=== PATIENT | male | born 1955 | race Caucasian/White ===

== ENCOUNTER 2019-09-17 10:53 | Observation (INO) | payer OTHER ==
[2019-09-17 12:43] LABS: Absolute Lymphocytes (CBC) 1.7 K/uL (0.7-4.9); Basophils % 0.4 % (0-1.3); Lymphocytes % 23.8 % (15.3-44.8); MPV 9.5 fL (7.6-11.3); RBC Red Blood Cell Count 4.57 M/uL (4.33-5.43)
[2019-09-17 13:07] LABS: Albumin 3.7 g/dL (3.4-5.0); Bilirubin Total 0.4 mg/dL (0.2-1.0); Magnesium 2.2 mg/dL (1.8-2.4); Potassium 3.7 mmol/L (3.5-5.1); Protein, Total 7.6 g/dL (6.4-8.2)
[2019-09-17] MEDS: NA CHLORIDE 0.9% 1,000 ML IV SCH (13:31)
--- NOTE | 2019-09-17 14:01 | RAD REPORT ---
EXAM DESCRIPTION: RAD - Chest Pa And Lat (2 Views) - 09/17/2019 1:46 pm CLINICAL HISTORY: acute colitis, abdominal pain COMPARISON: Chest Pa And Lat (2 Views) dated 09/07/2019 TECHNIQUE: Frontal and lateral views of the chest were obtained. FINDINGS: The lungs are clear of focal finding. Interstitial pattern matches comparison. Heart size is normal and central vasculature is within normal limits. No pleural effusion or pneumothorax seen . No acute bony finding noted. No aortic abnormality. IMPRESSION: No acute cardiopulmonary process.
--- NOTE | 2019-09-17 14:06 | RAD REPORT ---
EXAM DESCRIPTION: CT - Abdomen Pelvis Wo Contrast - 09/17/2019 1:55 pm CLINICAL HISTORY: colitis, right-sided abdominal pain on physical exam COMPARISON: No comparisons TECHNIQUE: Axial [address] imaging of the abdomen and pelvis was performed without IV contrast. No IV contrast was given because of allergy, abnormal renal function, patient refusal or physician re quest. Oral contrast was given. All CT scans are performed using dose optimization technique as appropriate and may include automated exposure control or mA/KV adjustment according to patient size. FINDINGS: No suspicious findings in the lung bases. Small hiatal hernia is present. Diffuse fatty infiltration is present in the liver. No focal liver lesion. Spleen and pancreas show n o suspicious finding. Gallbladder and biliary tree are also without suspicious finding. Gallstones ca n be occult on CT imaging. No hydronephrosis or suspicious renal mass. No significant adrenal finding. Isodense renal masses an d pyelonephritis cannot be excluded in the absence of IV contrast. The urinary bladder is without sig nificant finding. Prostate gland and seminal vesicles show no suspicious findings. No gastric dilatation or wall thickening. No small bowel abnormality. The appendix is normal. Fatty i leocecal valve is present. There is no colon wall thickening or mass. Patient has minimal diverticulo sis. No diverticulitis based on CT imaging. Mild mucosal level inflammatory changes are potentially o ccult on CT imaging. No free air, free fluid or inflammatory stranding. No mass or bulky lymphadenopathy. Bilateral fat only inguinal hernias are present extending a few cm into each inguinal canal. Patient does have a fe w sub centimeter mesenteric lymph nodes present. No suspicious bony findings. IMPRESSION: Patient has mild sigmoid diverticulosis without diverticulitis findings. Mild mucosal le shannon inflammatory changes are potentially occult on CT imaging. No colon wall thickening or mass. Diffuse fatty infiltration of the liver. Bilateral fat only inguinal hernias are present extending a few cm into each inguinal canal. Full assessment is limited is the absence of IV contrast.
[2019-09-17 14:56] LABS: Urine Appearance TURBID; Urine Bilirubin NEGATIVE (NEG); Urine Blood NEGATIVE (NEG); Urine Color YELLOW; Urine Glucose NEGATIVE (NEG); Urine Protein NEGATIVE (NEG); Urine Specific Gravity 1.025 (1.005-1.030); Urine Urobilinogen 0.2 mg/dL (0.2-1.0)
[2019-09-17 15:09] VITALS: O2SAT 96; BMI 29.7
[2019-09-17] MEDS: CIPROFLOXACIN 400mg IV 400 MG/200 ML BAG IV SCH ×2 (15:27→21:00)
[2019-09-17 15:48] LABS: Urine Amorphous Sediment 3+ /HPF (NONE SEEN); Urine Bacteria >50 /HPF (NONE SEEN); Urine Culture Reflex Order REFLEXED; Urine Mucus 1+ /HPF (NONE SEEN); Urine RBC NONE SEEN /HPF (NONE SEEN)
[2019-09-17] MEDS: METRONIDAZOLE 500mg IVPB 500 MG/100 ML BAG IV SCH (16:24)
[2019-09-17] MEDS ORDERED: PNEUMOCOCCAL VACCINE 0.5 ML IMVAC ONE (17:00)
[2019-09-17] MEDS ORDERED: INFLUENZA VACCINE (for 3y+) 0.5 ML DOSE IMVAC ONE (17:00)
[2019-09-17] MEDS ORDERED: POTASSIUM CL SA 10 MEQ TAB PO ONE (20:00)
[2019-09-17] MEDS ORDERED: ALBUTEROL SULFATE IH PRN (22:23)
[2019-09-17] MEDS: VALSARTAN 160 MG PO SCH (23:00)
[2019-09-18] MEDS: NA CHLORIDE 0.9% 1,000 ML IV SCH ×2 (00:34→09:00)
[2019-09-18] MEDS ORDERED: NA CHLORIDE 0.9% 1,000 ML ONE (00:34)
[2019-09-18] MEDS: METRONIDAZOLE 500mg IVPB 500 MG/100 ML BAG IV SCH ×2 (00:34→09:38)
[2019-09-18] MEDS ORDERED: METRONIDAZOLE 500mg IVPB 500 MG/100 ML BAG IV ONE ×2 (00:34→09:17)
--- NOTE | 2019-09-18 03:28 | HP ---
Date of Admission: 09/17/2019 Chief Complaint: Nausea, vomiting, diarrhea. History Of Present Illness: This is a 64-year-old very pleasant male patient, came into office with complaints of having chills, fatigue, feeling weak, and dizzy when he gets up and moves on with poor appetite, abdominal pain, nausea, vomiting, and diarrhea. All these symptoms are going on for last c ouple of weeks or so, and he describes as having anywhere between 5-10 bowel movements a day. Last v omiting was a few days ago. No blood in stool. After I evaluated him, he was admitted to hospital f or further evaluation and management of this problem. Allergies: PENICILLIN, CAUSING SWELLING. Medications: List reviewed. Review of Systems: GI: As mentioned above. Constitutional: As mentioned above. All other systems reviewed and negative. Past Medical History: Significant for hypertension, hyperlipidemia, and coronary artery disease. Past Surgical History: Coronary artery angioplasty, foot surgery. Family History: Significant for father had colon cancer. Mother with COPD and breast cancer and hyp ertension and also colon cancer. Social History: Negative for smoking. Alcohol use occasionally. Physical Examination: Vital Signs: When patient came into office today, blood pressure 150/93, pulse 69, temperature 97.2, respiratory rate 16. Weight 227.2 pounds. Height 73 inches. General: Patient appears weaker than normal, not in any respiratory distress. HEENT: Head atraumatic, normocephalic. Conjunctivae nonerythematous. Sclerae white. Mouth, no thr ush or edema noted. Ears/Nose, no mass, lesion, discharge noted. Neck: Supple. No JVD, lymph nodes, bruit, thyromegaly noted. Lungs: Bilateral good equal air entry. Clear to auscultation. No rhonchi. No rales. Heart: Normal heart sounds, no murmur or gallop. Abdomen: Presence of tenderness in left upper quadrant and right lower quadrant. Extremities: No leg edema. No calf tenderness. Skin: No rash, ulcer, cellulitis. Lymphatics: No lymph node enlargement in neck, supraclavicular, infraclavicular region. Neuro: No focal neurological deficit. Chest: Unremarkable. External Genitalia: Deferred. Rectal: Deferred. Laboratory Data: The patient was admitted to the hospital. Blood work, urine test, and CAT scan was done. CAT scan shows diverticulosis without evidence of diverticulitis, diffuse fatty infiltration of liver, bilateral fat-containing inguinal hernia. White count 7, hemoglobin 14.4, platelets 198. Sodium 137, potassium 3.7, chloride 106, bicarb 25, BUN 19, creatinine 1.0, glucose 111. SGOT 62, SG PT 87, alkaline phosphatase 86, procalcitonin 0.14. Lactic acid 1.1. Urinalysis, 3+ sediment, other royal negative. Impression: 1.Acute gastroenteritis. 2.Hypertension. 3.Hyperlipidemia. 4.Coronary artery disease. Plan: Admit patient to hospital for further evaluation and management of this problem. Patient is a ppropriate for inpatient and is expected to spend 2 midnight in hospital. Patient has symptoms going on for almost 2 weeks. Last time he used antibiotic was azithromycin about 2-3 months ago. Home me dications will be continued per order. We will put him on clear liquid diet. We will start him on e mpiric IV antibiotics, Cipro and Flagyl. Stool C diff and stool culture were ordered. I will see him tomorrow for followup. Details and plan of treatment discussed with patient . NURIS/MODL Voice ID: [id number]
[2019-09-18] MEDS ORDERED: BUPROPION HCL 100 MG PO SCH (09:00)
[2019-09-18] MEDS ORDERED: HYDROCHLOROTHIAZIDE 25 MG PO SCH (09:00)
[2019-09-18] MEDS ORDERED: CLOPIDOGREL BISULFATE PO SCH (09:00)
[2019-09-18] MEDS ORDERED: CIPROFLOXACIN 400mg IV 400 MG/200 ML BAG IV ONE (09:19)
[2019-09-18] MEDS: CIPROFLOXACIN 400mg IV 400 MG/200 ML BAG IV SCH (09:38)
[2019-09-18] MEDS: VALSARTAN 160 MG PO SCH (09:39)
[2019-09-18 12:25] VITALS: BP 145/79; TEMP 97.6
[2019-09-18 13:56] LABS: C.diff Antigen/Toxin Ag neg : Tox neg (NEG : NEG)
--- NOTE | 2019-09-19 03:41 | DS ---
Date of Discharge: 09/18/2019 Physical Examination: HEENT: Examination unremarkable. Lungs: Clear to auscultation. Heart: Sounds normal. Abdomen: Soft. Bowel sounds normal. No guarding, rigidity, tenderness, or distention. Extremities: No leg edema. Laboratory Data: White count 7, hemoglobin 14.4, platelets 198. Sodium 137, potassium 3.7, chloride 106, bicarb 25, BUN 19, creatinine 1.10 glucose 111. SGOT 62, SGPT 87, procalcitonin 0.1. Hospital Course: A 64-year-old pleasant male patient came into office with abdominal pain, nausea, v omiting, and diarrhea. Please see dictated H and P for more information. After patient was evaluate d at the office, he was admitted to the hospital. CAT scan of abdomen and pelvis was negative for an y acute changes. This was CT scan without contrast. It did show diverticulosis without any evidence of diverticulitis. After he was admitted to the hospital, he was started on IV fluid, IV antibiotic s. He had multiple diarrhea stool. After he came into the hospital, and stool for C diff result is pending. Stool culture is pending, but patient reports that after 10 p.m. or so last night his diarr hea problem completely resolved without using any antidiarrheal medication and has not had any diarrh ea at all. Does not have any nausea, vomiting. No abdominal pain. This morning he feels a lot bett er and he feels comfortable going home. Medically, he is stable for discharge. I did give him diet instruction and for him to try to stay on liquid diet and soft diet today and then starting tomorrow advance diet as he tolerates. Patient was instructed to call office next week to schedule followup a ppointment. Discharge Medications: Continue all prior home medication. 1.Cipro 500 mg twice a day for 1 week. 2.Metronidazole 500 mg 3 times a day for 1 week. Final Diagnoses: 1.Acute gastroenteritis. 2.Hypertension. 3.Hyperlipidemia. 4.Coronary artery disease. NURIS/MODL Voice ID: [id number] Report ID: [id number]
== END 2019-09-18 12:17 | disposition home or self-care (01) ==
LOC: INTOOBSV 11:16 → 2ND 11:16
PROVIDERS: ADMIT Internal Medicine; ATTEND Internal Medicine
DX: K52.9 Noninfective gastroenteritis and colitis, unspecified (principal); I10 Essential (primary) hypertension; E78.5 Hyperlipidemia, unspecified; I25.10 Atherosclerotic heart disease of native coronary artery without angina pectoris; Z88.0 Allergy status to penicillin; Z23 Encounter for immunization
CPT/HCPCS: 87045; 85025; 81001; 87086; 36415; 83735; 84132; 87046; 83605; 87324; 80053; 84145; 87449; 74176; 71046; 90471 ×2; 90670; Q2035; J7030 ×2; J0744 ×2; G0379; G0378 ×3; 87088

== ENCOUNTER → 2023-09-07 | Emergency (ER) | payer OTHER, BC ==
--- NOTE | 2023-09-07 14:34 | RAD REPORT ---
EXAM DESCRIPTION: Liliane Doll And Sadi (2 Views)09/07/2023 1:53 pm CLINICAL HISTORY: Cough COMPARISON: 2020 FINDINGS: The lungs appear clear of acute infiltrate. The heart is normal size IMPRESSION: No acute abnormalities displayed
--- NOTE | 2023-09-07 14:40 | ER ---
Nurse's Notes [facility] Name: Dmitry Hall Age: 68 yrs Sex: Male : 1955 Arrival Date: 09/07/2023 Time: 12:58 Bed IW2 Private MD: Diagnosis: SARS-associated coronavirus as the cause of diseases classified elsewhere Presentation: 09/07 13:32 Chief complaint: Patient states: +COVID AT HOME. SENT BY PCP'S OFFICE. Coronavirus bp screen: Client reports previous positive COVID test result. Date of collection: September 07, 2023. Ebola Screen: No symptoms or risks identified at this time. Initial Sepsis Screen: Does the patient meet any 2 criteria? No. Patient's initial sepsis screen is negative. Does the patient have a suspected source of infection? No. Patient's initial sepsis screen is negative. Risk Assessment: Do you want to hurt yourself or someone else? Patient reports no desire to harm self or others. Note VAXX SATURDAY, S/S STARTED SATURDAY. Onset of symptoms is unknown. 13:32 Method Of Arrival: Ambulatory bp 13:32 Acuity: JHONATHAN 4 bp Triage Assessment: 13:33 General: Appears in no apparent distress. ill, Behavior is calm, cooperative, bp appropriate for age. Pain: Denies pain. Historical: - Allergies: 13:33 No Known Allergies; bp - Home Meds: 13:33 Wellbutrin Oral [Active]; Plavix 75 mg Oral tablet 1 tab daily [Active]; aspirin 81 mg bp Oral tablet,chewable 1 tab daily [Active]; valsartan oral [Active]; Lipitor Oral [Active]; - PMHx: 13:33 Hypertensive disorder; bp - Immunization history:: Adult Immunizations up to date. - Social history:: Smoking status: Patient denies any tobacco usage or history of. - Family history:: not pertinent. - Hospitalizations: : No recent hospitalization is reported. Screenin:53 [facility] ED Fall Risk Assessment (Adult) History of falling in the last 3 months, bp including since admission No falls in past 3 months (0 pts). Abuse screen: Denies threats or abuse. Denies injuries from another. Nutritional screening: No deficits noted. Tuberculosis screening: No symptoms or risk factors identified. Vital Signs: 13:32 BP 132 / 76; Pulse 81; Resp 16; Temp 97.6; Pulse Ox 98% ; bp ED Course: 13:05 Patient arrived in ED. ts1 13:09 Yao Combs MD is Attending Physician. rn 13:33 Triage completed. bp 13:35 Arm band placed on. bp 13:54 XRAY Chest Pa And Lat (2 Views) In Process Unspecified. EDMS 14:52 Kehinde Ureña, RN is Primary Nurse. bp 14:53 Patient has correct armband on for positive identification. bp 14:53 No provider procedures requiring assistance completed. Patient did not have IV access bp during this emergency room visit. Administered Medications: No medications were administered Outcome: 14:39 Discharge ordered by MD. rn 14:53 Discharged to home ambulatory, bp 14:53 Condition: stable 14:53 Discharge instructions given to patient, Instructed on discharge instructions, follow up and referral plans. medication usage, Demonstrated understanding of instructions, follow-up care, medications, Prescriptions given X 1, 14:53 Patient left the ED. bp Signatures: Dispatcher [employer] EDMD Yao Combs MD MD rn Peltier, Brian, RN RN Brittnee Powell, MEREDITH PAS ts1
--- NOTE | 2023-09-07 14:40 | EDPHYS ---
Physician Documentation [facility] Name: Dmitry Hall Age: 68 yrs Sex: Male : 1955 Arrival Date: 09/07/2023 Time: 12:58 Bed IW2 Private MD: ED Physician Yao Combs HPI: 09/07 14:37 This 68 yrs old Male presents to ER via Ambulatory with complaints of +Covid sent by dr ganga Macias. 14:37 The patient or guardian reports cough. Onset: The symptoms/episode began/occurred 2 rn day(s) ago. Severity of symptoms: At their worst the symptoms were mild, in the emergency department the symptoms are unchanged. Modifying factors: The symptoms are alleviated by nothing, the symptoms are aggravated by nothing. Associated signs and symptoms: Pertinent positives: rhinorrhea, Pertinent negatives: vomiting. The patient has not experienced similar symptoms in the past. Patient reports 2 home test at home positive for COVID. recently seen and diagnosed with COVID. Patient reports runny nose, cough, malaise, headache. No vomiting or diarrhea. No shortness of breath. No chronic lung disease.. Historical: - Allergies: 13:33 No Known Allergies; bp - Home Meds: 13:33 Wellbutrin Oral [Active]; Plavix 75 mg Oral tablet 1 tab daily [Active]; aspirin 81 mg bp Oral tablet,chewable 1 tab daily [Active]; valsartan oral [Active]; Lipitor Oral [Active]; - PMHx: 13:33 Hypertensive disorder; bp - Immunization history:: Adult Immunizations up to date. - Social history:: Smoking status: Patient denies any tobacco usage or history of. - Family history:: not pertinent. - Hospitalizations: : No recent hospitalization is reported. ROS: 14:37 Constitutional: Negative for fever, chills, and weight loss, ENT: Positive for runny rn nose Cardiovascular: Negative for chest pain, palpitations, and edema, Respiratory: Positive for cough, negative for shortness of breath Abdomen/GI: Negative for abdominal pain, nausea, vomiting, diarrhea, and constipation, MS/Extremity: Negative for injury and deformity, Skin: Negative for injury, rash, and discoloration, Neuro: Positive for headache and generalized weakness Exam: 14:37 Constitutional: This is a well developed, well nourished patient who is awake, alert, rn and in no acute distress. ENT: Mild pharyngeal erythema, no stridor, moist mucous membranes Cardiovascular: Regular rate and rhythm. No pulse deficits. Respiratory: Speaking full sentences, unlabored Neuro: Awake and alert, GCS 15 Vital Signs: 13:32 BP 132 / 76; Pulse 81; Resp 16; Temp 97.6; Pulse Ox 98% ; bp MDM: 13:09 Patient medically screened. rn 14:37 Differential Diagnosis: Bronchitis Upper Respiratory Infection Viral Syndrome rn Pneumonia. Data reviewed: vital signs, nurses notes, radiologic studies, plain films, and as a result, I will discharge patient. Counseling: I had a detailed discussion with the patient and/or guardian regarding the historical points, exam findings, and any diagnostic results supporting the discharge/admit diagnosis, radiology results, the need for outpatient follow up, to return to the emergency department if symptoms worsen or persist or if there are any questions or concerns that arise at home. Special discussion: I discussed with the patient/guardian in detail that at this point there is no indication for admission to the hospital. It is understood, however, that if the symptoms persist or worsen the patient needs to return immediately for re-evaluation. ED course: Chest x-ray images negative for pneumonia or pneumothorax. No oxygen requirement. Will discharge home with Paxlovid as patient has had before and tolerated well.. 09/07 13:24 Order name: XRAY Chest Pa And Lat (2 Views); Complete Time: 14:36 bp Administered Medications: No medications were administered Disposition Summary: 09/07/23 14:39 Discharge Ordered Notes: Location: Home rn Problem: new rn Symptoms: have improved rn Condition: Stable rn Diagnosis - SARS-associated coronavirus as the cause of diseases classified elsewhere rn Followup: rn - With: Private Physician - When: As needed - Reason: Recheck today's complaints, Re-evaluation by your physician Discharge Instructions: - Discharge Summary Sheet rn - COVID-19 rn - 10 Things You Can Do to Manage Your COVID-19 Symptoms at Home - [facility] (03/24/2021) rn - Viral Illness, Adult rn Forms: - Medication Reconciliation Form rn - Thank You Letter rn - Antibiotic applications intern - Prescription Opioid Use rn - Patient Portal Instructions rn - Leadership Thank You Letter rn Prescriptions: - Paxlovid 300 mg (150 mg x 2)-100 mg Oral Tablet, Dose Pack - take 1 dose pack ORAL route as directed on dose pack take TWO 150 mg tablets of rn nirmatrelvir with ONE 100 mg tablet of ritonavir twice daily for 5 days; 1 packet; Refills: 0, Product Selection Permitted Signatures: Dispatcher [employer] Yao Norman MD MD rn Kehinde Ureña, RN RN bp
[2023-09-07 16:20] VITALS: BP 132/76; TEMP 97.6; O2SAT 98
== END ==
LOC: ER 12:58
DX: U07.1 COVID-19 (principal); I10 Essential (primary) hypertension; Z79.82 Long term (current) use of aspirin
CPT/HCPCS: 71046; 99283

== ENCOUNTER 2023-12-07 13:11 | Emergency (ER) | payer BC, OTHER ==
[2023-12-07] MEDS ORDERED: KETOROLAC 30 MG/ML INJ ONE (14:19)
--- NOTE | 2023-12-07 15:12 | RAD REPORT ---
EXAM DESCRIPTION: RAD - Knee Right 3 View - 12/07/2023 3:02 pm CLINICAL HISTORY: Right knee pain FINDINGS: No fracture or dislocation is seen. Prominent osteophyte extends off of the anterior superior aspect of the patella
--- NOTE | 2023-12-07 15:34 | ER ---
Nurse's Notes [facility] Name: Dmitry Hall Age: 68 yrs Sex: Male : 1955 Arrival Date: 12/07/2023 Time: 13:11 Bed IW2 Private MD: Diagnosis: Pain in right knee Presentation: 12/06 13:31 Chief complaint: Patient states: R knee pain since Saturday. Coronavirus screen: Client ll1 denies travel out of the [place] in the last 14 days. At this time, the client does not indicate any symptoms associated with coronavirus-19. Ebola Screen: Patient denies travel to an Ebola-affected area in the 21 days before illness onset. Initial Sepsis Screen: Does the patient meet any 2 criteria? No. Patient's initial sepsis screen is negative. Does the patient have a suspected source of infection? No. Patient's initial sepsis screen is negative. Risk Assessment: Do you want to hurt yourself or someone else? Patient reports no desire to harm self or others. Onset of symptoms was December 02, 2023. 13:31 Method Of Arrival: Ambulatory 1 13:31 Acuity: JHONATHAN 4 ll1 Triage Assessment: 13:30 General: Appears uncomfortable, Behavior is calm, cooperative, appropriate for age. ll1 Pain: Complains of pain in R knee Quality of pain is described as aching. Musculoskeletal: Circulation, motion, and sensation intact. Capillary refill < 3 seconds, Reports pain in R knee. Historical: - Allergies: 13:30 PENICILLINS; ll1 - PMHx: 13:30 Hypertensive disorder; ll1 - PSHx: 13:30 None; ll1 - Immunization history:: Adult Immunizations up to date. - Social history:: Smoking status: Patient denies any tobacco usage or history of. Screenin:25 [facility] ED Fall Risk Assessment (Adult) History of falling in the last 3 months, as6 including since admission No falls in past 3 months (0 pts) Confusion or Disorientation No (0 pts) Intoxicated or Sedated No (0 pts) Impaired Gait No (0 pts) Mobility Assist Device Used No (0 pt) Altered Elimination No (0 pt) Score/Fall Risk Level 0 - 2 = Low Risk Oriented to surroundings, Maintained a safe environment, Educated pt \T\ family on fall prevention, incl call for assistance when getting out of bed, Assessed \T\ reinforced patient's understanding of fall precautions, Hourly rounding (assess needs \T\ fall precautionary measures) done. Abuse screen: Denies threats or abuse. Denies injuries from another. Nutritional screening: No deficits noted. Tuberculosis screening: No symptoms or risk factors identified. Assessment: 14:24 Reassessment: No changes from previously documented assessment. Patient and/or family ll1 updated on plan of care and expected duration. Pain level reassessed. Patient is alert, oriented x 3, equal unlabored respirations, skin warm/dry/pink. Vital Signs: 13:31 BP 186 / 92; Pulse 70; Resp 16; Temp 97.8; Pulse Ox 100% ; Pain 8/10; ll1 13:31 Pain Scale: Adult ll1 ED Course: 13:15 Patient arrived in ED. im 13:16 Tony Valdez DO is Attending Physician. ms3 13:32 Triage completed. ll1 13:32 Arm band placed on Patient placed in an exam room, on a stretcher. ll1 15:04 Knee Right 3 View XRAY In Process Unspecified. EDMS 15:25 Patient has correct armband on for positive identification. Provided Education on: as6 follow up. 15:25 No provider procedures requiring assistance completed. Patient did not have IV access as6 during this emergency room visit. Administered Medications: 14:23 Drug: Ketorolac IM 15 mg IM once Route: IM; Site: left deltoid; ll1 15:25 Follow up: Response: No adverse reaction as6 Medication: 15:25 VIS not applicable for this client. as6 Outcome: 15:25 Discharged to home ambulatory, as6 15:25 Condition: stable 15:25 Discharge instructions given to patient, Instructed on discharge instructions, follow up and referral plans. Demonstrated understanding of instructions, follow-up care, 15:33 Discharge ordered by MD. ms3 15:41 Patient left the ED. as6 Signatures: Dispatcher [employer] EDMS Michael Nova, RN RN ll1 Tony Valdez DO DO ms3 Mason Fulton RN RN as6 Maria E Geronimo im
--- NOTE | 2023-12-07 15:34 | EDPHYS ---
Physician Documentation [facility] Name: Dmitry Hall Age: 68 yrs Sex: Male : 1955 Arrival Date: 12/07/2023 Time: 13:11 Bed IW2 Private MD: ED Physician Tony Valdez HPI: 12/06 14:42 This 68 yrs old Male presents to ER via Ambulatory with complaints of Knee Pain. ms3 14:42 68-year-old male with past medical history of hypertension presents to the emergency ms3 department for right knee pain began on Saturday. Patient states pain is rated 7/10. Patient denies fevers, chills, nausea, vomiting. Historical: - Allergies: 13:30 PENICILLINS; ll1 - PMHx: 13:30 Hypertensive disorder; ll1 - PSHx: 13:30 None; ll1 - Immunization history:: Adult Immunizations up to date. - Social history:: Smoking status: Patient denies any tobacco usage or history of. ROS: 14:42 Constitutional: Negative for fever, and chills. Neck: Negative for injury, pain, and ms3 swelling, Cardiovascular: Negative for chest pain, and palpitations. Respiratory: Negative for shortness of breath, cough, wheezing, and pleuritic chest pain, Abdomen/GI: Negative for abdominal pain, nausea, vomiting, diarrhea, and constipation, 14:42 MS/extremity: Positive for pain, of the Right knee, Exam: 14:42 Constitutional: This is a well developed, well nourished patient who is awake, alert, ms3 and in no acute distress. Head/Face: Normocephalic, atraumatic. Neck: Trachea midline, no cervical lymphadenopathy. Supple, full range of motion without nuchal rigidity, or vertebral point tenderness. No Meningismus. Chest/axilla: Normal chest wall appearance and motion. Nontender with no deformity. Cardiovascular: Regular rate and rhythm with a normal S1 and S2. No gallops, murmurs, or rubs. Normal PMI, no JVD. No pulse deficits. Respiratory: Lungs have equal breath sounds bilaterally, clear to auscultation and percussion. No rales, rhonchi or wheezes noted. No increased work of breathing, no retractions or nasal flaring. Abdomen/GI: Soft, non-tender, with normal bowel sounds. No distension or tympany. No guarding or rebound. No evidence of tenderness throughout. Skin: Warm, dry with normal turgor. Normal color with no rashes, no lesions, and no evidence of cellulitis. 14:42 Musculoskeletal/extremity: Extremities: noted in the Right knee: pain, swelling, Medial tenderness, Vital Signs: 13:31 BP 186 / 92; Pulse 70; Resp 16; Temp 97.8; Pulse Ox 100% ; Pain 8/10; ll1 13:31 Pain Scale: Adult ll1 MDM: 13:35 Patient medically screened. ms3 14:42 Differential diagnosis: Osteoarthritis versus medial meniscal tear versus MCL tear. ms3 15:33 Data reviewed: vital signs, nurses notes, and as a result, I will discharge patient. I ms3 considered the following discharge prescriptions or medication management in the emergency department Medications were administered in the Emergency Department. See MAR. Care significantly affected by the following chronic conditions: Hypertension. Counseling: I had a detailed discussion with the patient and/or guardian regarding the historical points, exam findings, and any diagnostic results supporting the discharge/admit diagnosis, radiology results, the need for outpatient follow up, to return to the emergency department if symptoms worsen or persist or if there are any questions or concerns that arise at home. Special discussion: I discussed with the patient/guardian in detail that at this point there is no indication for admission to the hospital. It is understood, however, that if the symptoms persist or worsen the patient needs to return immediately for re-evaluation. ED course: Discussed x-ray results with patient. Patient to follow-up with Dr. Blanchard in 2 to 3 days. Patient understands and agrees with plan. All questions were answered. Return precautions discussed include worsening symptoms, erythema, fevers, chills, or any other concerns. On reevaluation patient is alert and oriented x 4, no apparent distress, nontoxic-appearing, ambulatory in the emergency department, speaking full sentences. Patient offered knee immobilizer and crutches and he declines. Patient states he will get compressive knee brace and he has crutches at home. 12/06 13:35 Order name: Knee Right 3 View XRAY; Complete Time: 15:14 ms3 Administered Medications: 14:23 Drug: Ketorolac IM 15 mg IM once Route: IM; Site: left deltoid; ll1 15:25 Follow up: Response: No adverse reaction as6 Disposition Summary: 12/07/23 15:33 Discharge Ordered Notes: Location: Home ms3 Condition: Stable ms3 Diagnosis - Pain in right knee ms3 Followup: ms3 - With: Private Physician - When: 2 - 3 days - Reason: Recheck today's complaints Discharge Instructions: - Discharge Summary Sheet ms3 - Acute Knee Pain, Adult ms3 Forms: - Medication Reconciliation Form ms3 - Thank You Letter ms3 - Antibiotic Education ms3 - Prescription Opioid Use ms3 - Patient Portal Instructions ms3 - Leadership Thank You Letter ms3 Signatures: Dispatcher [employer] EDMichael Miramontes RN RN ll1 Tony Valdez DO DO ms3 Mason Fulton RN as6
[2023-12-07 15:58] VITALS: BP 186/92; TEMP 97.8; O2SAT 100
== END 2023-12-07 15:41 | disposition home or self-care (01) ==
LOC: ER 13:11
DX: M25.561 Pain in right knee (principal); Z88.0 Allergy status to penicillin
CPT/HCPCS: 96372; 99284